=== PATIENT | male | born 1970 | race Caucasian/White ===

== ENCOUNTER 2017-11-06 22:04 | Emergency (ER) | payer MEDICAID, OTHER ==
[2017-11-06] MEDS: IPRATROPIUM (NEB) 0.5 MG/2.5 ML AMP NEB (23:43)
[2017-11-06] MEDS: ALBUTEROL 0.083% (NEB) 2.5 MG/3 ML AMP NEB (23:43)
== END 2017-11-07 00:05 | disposition home or self-care (01) ==
LOC: FTE 11-07 00:05
DX: J20.9 Acute bronchitis, unspecified (principal)
CPT/HCPCS: 94664; 99284-25

== ENCOUNTER 2018-05-09 23:40 | Emergency (ER) | payer SELFPAY, MEDICAID ==
[2018-05-10] MEDS: METHYLPREDNISOLONE 125 MG INJ IM (00:18)
[2018-05-10] MEDS: IPRATROPIUM (NEB) 0.5 MG/2.5 ML AMP NEB (00:29)
[2018-05-10] MEDS: ALBUTEROL 0.083% (NEB) 2.5 MG/3 ML AMP NEB (00:30)
== END 2018-05-10 00:57 | disposition home or self-care (01) ==
LOC: FTE 23:40
DX: J20.9 Acute bronchitis, unspecified (principal)
CPT/HCPCS: 94664; 96372; 99284-25